=== PATIENT | female | born 1970 | race Caucasian/White ===

== ENCOUNTER 2019-02-24 18:18 | Emergency (ER) | payer BC, OTHER ==
[~2019-02-24] VITALS: Ht 160 cm; Wt 62.6 kg
--- NOTE | 2019-02-24 18:40 | NUR ---
AAOX3, came to ER c/o dizziness x 4 days, reported that she had syncopal episode couple of days ago and was at [facility]. Patient is taking meclizine to no relief. RR is even and unlabored with NAD noted. Skin is warm and dry. Dr Carpio at [facility] for eval.
[2019-02-24] MEDS ORDERED: IV NS 0.9% 1,000 ML BAG IV ONE (19:00)
[2019-02-24 19:06] LABS: BASOPHILS # (AUTO) 0.1 /CMM (0.0-0.2); BASOPHILS % (AUTO) 0.9 % (0.0-2.0); EOSINOPHILS % (AUTO) 1.2 % (0.0-6.0); HEMATOCRIT 43 % (33-45); LYMPHOCYTES # (AUTO) 3.2 /CMM (0.8-4.8); LYMPHOCYTES % (AUTO) 33.2 % (20.0-44.0); MEAN CORPUSCULAR HGB CONC 35 g/dl (31.0-36.0); MEAN CORPUSCULAR VOLUME 90 fL (82-100); MONOCYTES # (AUTO) 0.7 /CMM (0.1-1.30); MONOCYTES % (AUTO) 6.8 % (2.0-12.0); NEUTROPHILS # (AUTO) 5.6 /CMM (1.8-8.9); NEUTROPHILS % (AUTO) 57.9 % (43.0-81.0); PLATELET COUNT (AUTO) 307 /CMM (150-450); RED BLOOD CELL COUNT(AUTO) 4.79 MIL/uL (4.0-5.2); WHITE BLOOD COUNT (AUTO) 9.7 K/uL (4.3-11.0)
--- NOTE | 2019-02-24 19:09 | NUR ---
REPORT RECEIVED FROM CARLOS CANTRELL FOR JANIS.
--- NOTE | 2019-02-24 19:15 | NUR ---
Patient came back from CT.
[2019-02-24 19:24] LABS: CALCIUM, SERUM 9.4 mg/dL (8.5-10.1)
--- NOTE | 2019-02-24 20:33 | NUR ---
IV removed. Catheter intact and site benign. Pressure and 4x4 applied to site. No bleeding noted. Patient discharged to home in stable condition. Written and verbal after care instructions given. Patient verbalizes understanding of instruction. Patient is awake and alert to self, day, and place. Patient ambulatory with a steady gait.
[2019-02-24 20:36] VITALS: BP 149/74
== END 2019-02-24 20:36 | disposition home or self-care (01) ==
LOC: ER 18:27 → EDSEX 18:27 → ER 20:36
DX: G44.209 Tension-type headache, unspecified, not intractable (principal); F43.9 Reaction to severe stress, unspecified
CPT/HCPCS: 36415; 70450; 72125; 80048; 85025; 96360; 99284; J7030